=== PATIENT | female | born 1985 | race Caucasian/White ===

== ENCOUNTER 2017-09-12 08:19 | Inpatient (IN) | payer OTHER ==
[~2017-09-12] VITALS: Ht 167.6 cm; Wt 120.7 kg
[~2017-09-12 08:19] MED LIST: BUTALB-ACETAMI1 EACH PO; DOCUSATE SODIU100 M3 PO; IBUPROFEN800 M1 PO; PERCOCET 325 MG1 TA2 PO; PRENATAL TABLE1 EAC2 PO; PROZAC10 M1 PO; ZOFRAN4 MG PO
[2017-09-12] MEDS ORDERED: ACTIGALL300 MG PO (08:45)
[2017-09-12 09:16] LABS: ABSOLUTE BASOPHIL COUNT 0 /CUMM (0.0-0.2); ABSOLUTE EOSINOPHIL COUNT 0.1 /CUMM (0.0-0.7); ABSOLUTE GRANULOCYTE CT 9.2 /CUMM (1.4-6.5); ABSOLUTE LYMPH COUNT 1.6 /CUMM (1.2-3.4); ABSOLUTE MONOCYTE COUNT 0.3 /CUMM (0.10-0.60); BASOPHIL % 0.2 % (0.0-2.0); EOSINOPHIL % 1.1 % (0-5); GRANULOCYTE % 82.2 % (42.2-75.2); HEMATOCRIT 37.2 % (37-47); MEAN CORPUSCULAR HGB 28.7 PG (27.0-31.0); MEAN CORPUSCULAR HGB CONC 33.2 G/DL (33.0-37.0); MEAN CORPUSCULAR VOLUME 86.7 FL (81.0-99.0); MEAN PLATELET VOLUME 8.8 FL (7.4-10.4); PLATELET COUNT 221 /CUMM (130-400); RBC DISTRIBUTION WIDTH 13.1 % (11.5-14.5); RED BLOOD CELL CT 4.29 /CUMM (4.20-5.40); WHITE BLOOD CELL COUNT 11.3 /CUMM (4.8-10.8)
--- NOTE | 2017-09-12 09:30 | History & Physical Pre-Op ---
General Information and HPI History of Present Illness: 32 EDC 10/03/17 admitted for induction of labor secondary to cholestasis diagnosed by symptoms and elevated bile acids; treated with Actigall. Weekly NSTs reactive. Allergies/Medications Allergies: Coded Allergies: Penicillins (RASH 08/19/15) erythromycin base (From ERYTHROCIN) (RASH 08/19/15) Home Med list Vit No.130/Iron/FA ( Tablet) 1 EACH TABLET 1 TAB PO DAILY (Reported) Ursodiol (Actigall) 300 MG CAPSULE 300 MG PO BID CHOLESTASIS (Reported) Past History Medical History Psychiatric: anxiety Surgical History Pertinent Surgical History: non-contributory Past Family/Social History Psychosocial History Smoking Status: Never Smoked Review of Systems Review of Systems Constitutional: Reports: no symptoms. EENTM: Reports: no symptoms. Cardiovascular: Reports: no symptoms. Respiratory: Reports: no symptoms. GI: Reports: no symptoms. Genitourinary: Reports: no symptoms. Musculoskeletal: Reports: no symptoms. Skin: Reports: no symptoms. Neurological/Psychological: Reports: no symptoms. Hematologic/Endocrine: Reports: no symptoms. Immunologic/Allergic: Reports: no symptoms. All Other Systems: Reviewed and Negative Exam & Diagnostic Data Last 24 Hrs of Vital Signs/I&O Intake & Output 09/12 1600 09/12 0800 09/12 0000 Intake Total Output Total Balance Patient 266 lb Weight Physical Exam: HEENT: NCAT Chest: CTA CV: nl S1S2 Abd: cephalic, gravid, EFW 6.5 Cx: LTCP Ext: no C/C/E Neuro: nonfocal Assessment/Plan Assessment/Plan: 37 week cholestasis poor [place] score Miso ripening Pitocin induction As Ranked By This Provider Problem List: 1. Cholestasis of
--- NOTE | 2017-09-12 20:30 | PN- Obstetrical ---
Subjective Subjective: no c/o Review of Systems: uc q 2 min Objective Last 24 Hrs of Vital Signs/I&O Intake & Output 09/12 1600 09/12 0800 09/12 0000 Intake Total Output Total Balance Patient 266 lb Weight Physical Exam: Cx: LTCP Ext NT Obstetric Exam Dilation (cm): 0 Effacement (%): 0 Station: -3 Membranes: intact Fluid: unknown Multiple Gestation? No Contractions: q2 Assessment/Plan Assessment/Plan 37 week IOL for cholestasis no cervical change d/c pitocin restart in am Problem List: 1. Cholestasis of
--- NOTE | 2017-09-13 08:28 | PN- Obstetrical ---
Subjective Subjective: no c/o Review of Systems: neg Objective Last 24 Hrs of Vital Signs/I&O vss Physical Exam: ff Cx: LTCP Ext: no c/c/e Obstetric Exam Dilation (cm): 0 Effacement (%): 0 Station: -3 Membranes: intact Fluid: unknown Multiple Gestation? No Contractions: none Assessment/Plan Assessment/Plan 37 week prtegnancy with cholestasis no results with Miso ripening cont Pitocin IOL Problem List: 1. Cholestasis of
[2017-09-13 22:20] LABS: ABSOLUTE BASOPHIL COUNT 0 /CUMM (0.0-0.2); ABSOLUTE EOSINOPHIL COUNT 0 /CUMM (0.0-0.7); ABSOLUTE GRANULOCYTE CT 13.6 /CUMM (1.4-6.5); ABSOLUTE MONOCYTE COUNT 0.2 /CUMM (0.10-0.60); BASOPHIL % 0.1 % (0.0-2.0); EOSINOPHIL % 0.1 % (0-5); MEAN CORPUSCULAR HGB 28.1 PG (27.0-31.0); MEAN CORPUSCULAR HGB CONC 31.6 G/DL (33.0-37.0); MEAN PLATELET VOLUME 8.9 FL (7.4-10.4); PLATELET COUNT 205 /CUMM (130-400); RBC DISTRIBUTION WIDTH 13.6 % (11.5-14.5); RED BLOOD CELL CT 4.82 /CUMM (4.20-5.40); WHITE BLOOD CELL COUNT 14.9 /CUMM (4.8-10.8)
[2017-09-13 22:23] LABS: HEMATOCRIT 42.9 % (37-47)
[2017-09-13 22:34] LABS: GRANULOCYTE % 91.4 % (42.2-75.2)
--- NOTE | 2017-09-14 | Labor & Delivery Summary ---
Delivery Summary Vaginal Delivery: Vaginal: vertex Episiotomy/Lacerations: Episiotomy/Lacerations: none Placenta: Placenta: spontanteous, normal, 3 vessel Anesthesia: general endotracheal tube (epi) Baby's Weight: p sts Apgars - 1 Min: 9 Apgars - 5 Min: 9
[2017-09-14] MEDS ORDERED: IBUPROFEN800 M1 PO (00:01)
[2017-09-14 00:58] VITALS: BP 121/62
[2017-09-14 09:13] LABS: ABSOLUTE BASOPHIL COUNT 0 /CUMM (0.0-0.2); ABSOLUTE EOSINOPHIL COUNT 0 /CUMM (0.0-0.7); ABSOLUTE GRANULOCYTE CT 12.2 /CUMM (1.4-6.5); ABSOLUTE LYMPH COUNT 2.2 /CUMM (1.2-3.4); ABSOLUTE MONOCYTE COUNT 0.7 /CUMM (0.10-0.60); BASOPHIL % 0.3 % (0.0-2.0); EOSINOPHIL % 0.2 % (0-5); GRANULOCYTE % 80.5 % (42.2-75.2); MEAN CORPUSCULAR HGB 28.6 PG (27.0-31.0); MEAN CORPUSCULAR HGB CONC 32.7 G/DL (33.0-37.0); MEAN CORPUSCULAR VOLUME 87.5 FL (81.0-99.0); PLATELET COUNT 214 /CUMM (130-400); RBC DISTRIBUTION WIDTH 13.2 % (11.5-14.5); RED BLOOD CELL CT 4.32 /CUMM (4.20-5.40); WHITE BLOOD CELL COUNT 15.1 /CUMM (4.8-10.8)
[2017-09-14 09:23] LABS: HEMATOCRIT 37.8 % (37-47)
--- NOTE | 2017-09-14 09:58 | PN- OBGYN ---
Surgical Brief Attending Note Brief Attending Note: Seen and evaluated PPD#1 s/p vaginal Seen sitting in bed with partner and child. 1) Cholestasis. Now delivered. No further itching. No need for actigall and or lab testing in my opinoin. Discussed that ocps would bring upon similar symptoms and to consider alternative contraceptive. 2) Pain controlled and vitals are stable and tolerating PO intake. 3) Reviewed influenza and tdap and she states received both 4) Substance use. THC on urine toxicology and was breast feeding. I discussed the impact of THC in breast milk and on potential neurodevelopmental harm to the . Recommend against same until she is clear of THC. 5) Anticipate DC tomorrow.
--- NOTE | 2017-09-14 18:55 | ED PSY CRISIS COLLATERAL NOTE ---
Collateral Note Collateral Note Family/Inform/Evgeny Contacts: Crisis social services analyst met with pt as pt tested positive for cannabis when she delivered her daughter last night. Nursing provided SW with print out of the baby's drug screen which was negative for cannabis. Pt reports that she was using "eatables" and not smoking marijauna while to treat her anxiety and help her sleep. Pt reports she was prescribed xanax prior to finding out she was to treat her anxiety. Pt reports without the xanax pt's anxiety was so severe that she could not sleep at night. Pt reports she was going to stop using "eatables" before the baby was born but she was induced earlier than she thought she would be. Pt reports her plan right now is to give the baby the formula the hospital provided and continue to give the baby formula until she is told she can breastfeed. She intends to "pump and dump" until she is told she can breastfeed. Pt reports that she has 3 other children at home ages 7, 4.5 and 19 months and that she has not had any DCF involvement before. Pt is and her /father of baby is supportive. Pt was educated about the process of filing a report with [facility] and the process of the investigation: specifically that a report would be filed with the [facility] careline; the careline worker/supervisor fitting would determine if the report would be investigated; if the case would be investigated that someone from [facility] would met with the pt and determine next steps which could include on-going dcf services or the case could be closed; explained that the investigation process could last up to 45 days. Pt reported she understood the information being told to her. Pt would like to be updated so she knows if she can go home tomorrow. SW checked in with nursing before leaving the [facility] to inform them that SW would be in touch after speaking with [facility]. SW called careline report to [facility] [phone] and spoke with Michell Guillermo. She stated she would review case with [facility] supervisor fitting and call this SW back at [phone] tonight. Crisis recieved call back at 19:50 from Michell Guillermo from [facility]. She stated that [facility] is accepting the report and that the reponse time is going to be 72 hours. She states the pt can go home and DCF will follow up with the pt at home Saturday or Saturday of next week. Original 136 given to [facility] nurse and it was also faxed to [facility] Investigations office.
== END 2017-09-15 09:30 | DRG 560 ==
LOC: GNO 08:19
PROVIDERS: Obstetrics & Gynecology
PROC: 3E033VJ Introduction of Other Hormone into Peripheral Vein, Percutaneous Approach (ICD-10-PCS; 2017-09-12)
PROC: 10E0XZZ Delivery of Products of Conception, External Approach (ICD-10-PCS; principal; 2017-09-13)
DX: O26.62 Liver and biliary tract disorders in childbirth (principal); K83.1 Obstruction of bile duct; O99.324 Drug use complicating childbirth; E66.01 Morbid (severe) obesity due to excess calories; Z3A.37 37 weeks gestation of pregnancy; Z37.0 Single live birth; Z88.0 Allergy status to penicillin; Z88.8 Allergy status to other drugs, medicaments and biological substances
CPT/HCPCS: GNOP; GNOS; 36415; 80307; 81001; 87086; J1650; J7120